=== PATIENT | male | born 1940 | race Caucasian/White ===

== ENCOUNTER 2017-12-04 16:13 | Emergency (ER) | payer OTHER ==
[~2017-12-04] VITALS: Ht 177.8 cm; Wt 72.6 kg
[2017-12-04 17:33] LABS: Hematocrit 25.7 % (41.0-53.0); Hemoglobin 7.6 g/dL (13.5-17.5); Mean Corpuscular Hemoglobin 26.4 pg (28.0-32.0); Mean Corpuscular Hgb Conc. 29.4 g/dL (32.0-36.0); Mean Corpuscular Volume 89.8 fL (80.0-100.0); Platelet Count (auto) 42 10^3/uL (140-450); Red Blood Cells 2.86 10^6/uL (4.5-5.90); White Blood Cell 3.2 10^3/uL (4.4-10.8)
[2017-12-04 17:36] LABS: Red Cell Distribution Width 26.7 % (11.8-14.3)
[2017-12-04 17:40] LABS: Basophils % (manual) 0 (0.0-2.0); Blast Cells 0; Eosinophils % (manual) 0 (0-7); Metamyelocytes % 0; Myelocytes % 0; Promyelocytes % 0; Reactive Lymphocytes 0
[2017-12-04 17:54] LABS: Albumin 3.3 g/dL (3.4-5.0); BUN/Creatinine Ratio 17.7; Calcium 8.7 mg/dL (8.5-10.1); Magnesium 1.8 mg/dL (1.6-2.6); Potassium 4.1 mmol/L (3.5-5.1)
[2017-12-04 17:59] LABS: Bilirubin, Total 1.7 mg/dL (0.2-1.0); Total Protein 6.7 g/dL (6.4-8.2)
[2017-12-04 19:07] LABS: Band Neutrophils % (manual) 2; Lymphocytes % (manual) 20 (10.0-50.0); Monocytes % (manual) 11 (0-12)
[2017-12-04] MEDS ORDERED: FUROSEMIDE 20 MG/2 ML VIAL IV ONE (22:30)
[2017-12-04 22:45] VITALS: BP 108/66
== END 2017-12-05 00:01 | disposition home or self-care (01) ==
LOC: ER 16:20
DX: I50.9 Heart failure, unspecified (principal); F41.9 Anxiety disorder, unspecified; I25.2 Old myocardial infarction; I48.91 Unspecified atrial fibrillation
CPT/HCPCS: 36415; 71046; 80053; 83735; 83880; 84484; 85007; 85027; 85379; 93005; 96374; 99285; J1940